=== PATIENT | male | born 1990 | race Caucasian/White ===

== ENCOUNTER 2021-08-11 16:27 | Emergency (ER) | payer SELFPAY ==
[~2021-08-11] VITALS: Ht 175.2 cm; Wt 95.2 kg
[~2021-08-11 16:27] MED LIST: ACHD5005 PO
[2021-08-11] MEDS ORDERED: HYDROcodone/APAP 7.5 MG/325 MG (LORTAB, LORCET PLUS) TABLET PO STA (16:41)
--- NOTE | 2021-08-11 16:44 | ED Lower Extremity ---
General Chief Complaint: Lower Extremity Stated Complaint: HURT RIGHT FOOT Source: patient Exam Limitations: no limitations History of Present Illness Date Seen by Provider: Aug 11, 2021 Time Seen by Provider: 16:42 Initial Comments Patient is a 30-year-old male who presents ED with right foot pain. Around 3:00 today a 200 pound fork of a dana lift fell on his right foot. Patient was wearing tennis shoes. Pain to the dorsum side of the foot. Pain with walking. No obvious bone deformity. Swelling and bruising. Denies anything for pain. No history of previous fracture. Denies ankle pain, nausea, vomiting, fever, chills Allergies and Home Medications Allergies Coded Allergies: No Known Drug Allergies (Unverified , 04/16/12) Patient Home Medication List Home Medication List Reviewed: Yes Naproxen (Naproxen) 500 Mg Tablet.dr, 500 MG PO BID Prescribed by: SALLY SANCHEZ on 08/11/21 1590 Review of Systems Constitutional: No chills, No fever, No malaise, No weakness EENTM: No blurred vision, No mouth pain, No mouth swelling, No throat pain, No throat swelling Respiratory: No cough, No dyspnea on exertion, No short of breath Cardiovascular: No chest pain Gastrointestinal: No abdominal pain, No diarrhea, No nausea, No vomiting Genitourinary: No decreased output, No discharge Musculoskeletal: No back pain; joint pain, joint swelling, muscle pain Skin: other (Bruising and swelling) All Other Systems Reviewed Negative Unless Noted: Yes Physical Exam Vital Signs Vital Signs - First Documented 08/11/21 16:42 Temp 36.0 Pulse 77 Resp 18 B/P (MAP) 148/96 (113) Pulse Ox 98 Capillary Refill : Height, Weight, BMI Height: '" Weight: lbs. oz. kg; BMI Method:Stated General Appearance: WD/WN, no apparent distress HEENT: PERRL/EOMI, normal ENT inspection, TMs normal, pharynx normal Neck: non-tender, full range of motion, supple Cardiovascular: regular rate, rhythm, no edema, no gallop, no JVD Respiratory: chest non-tender, lungs clear, normal breath sounds, no respiratory distress, no accessory muscle use Gastrointestinal: normal bowel sounds, non tender, soft Back: normal inspection, no CVA tenderness Feet: right foot limited range of motion, right foot pain, right foot soft tissue tenderness Neurologic/Tendon: normal sensation Skin: other (Contusion and swelling to right dorsal foot) Progress/Results/Core Measures Results/Orders My Orders Orders - DENISE CLIFTON Foot, Right, 3 View (08/11/21 16:41) Hydrocodone/Apap 7.5/325 Tab (Lortab 7. (08/11/21 16:41) Vital Signs/I&O 08/11/21 16:42 Temp 36.0 Pulse 77 Resp 18 B/P (MAP) 148/96 (113) Pulse Ox 98 Departure Communication (Admissions) X-ray of the right foot negative for fracture. He is able to bear weight. Was given a dose of pain medication. Will discharge with anti-inflammatories. Orthopedic follow-up in 7 to 10 days if pain progress. Ice and elevate. Rick wrap for support. Recommend proper footwear. Postop shoe ir Rick wrap for comfort. Crutches as needed. Outpatient follow-up. Return precaution were discussed Impression Primary Impression: Foot sprain Disposition: 01 HOME, SELF-CARE Condition: Stable Departure-Patient Inst. Decision time for Depature: 17:54 Referrals: NO,LOCAL PHYSICIAN (PCP) Primary Care Physician LEV BELTRAN MD Patient Instructions: Foot Sprain (DC) Scripts Naproxen (Naproxen) 500 Mg Tablet. 500 MG PO BID for 10 Days, #20 TAB Prov: DENISE CLIFTON 08/11/21 Work/School Note: Work Release Form Date Seen in the Emergency Department: Aug 11, 2021 Return to Work: Aug 14, 2021 DENISE CLIFTON Aug 11, 2021 16:44
--- NOTE | 2021-08-11 17:40 | Diagnostic Imaging Report ---
INDICATION: Pain along the dorsum of the foot and first and second digits. EXAMINATION: Right foot from 08/11/2021. FINDINGS: Three views of the foot. Small osseous fragments at the interphalangeal joint of the great toe appear well corticated and chronic in nature. No acute fractures or dislocations appreciated. Soft tissues are unremarkable. IMPRESSION: 1. Chronic findings with no acute osseous abnormality. Dictated by: Dictated on workstation # [id number]
[2021-08-11] MEDS ORDERED: NAPR500T8 PO (17:55)
[2021-08-11 18:01] VITALS: BP 131/77
== END 2021-08-11 18:01 | disposition home or self-care (01) ==
LOC: EDUNIT# 16:27 → ER 16:32
DX: S93.601A Unspecified sprain of right foot, initial encounter (principal); X50.1XXA Overexertion from prolonged static or awkward postures, initial encounter
CPT/HCPCS: 73630

== ENCOUNTER 2022-01-05 12:19 | Emergency (ER) | payer SELFPAY ==
[~2022-01-05] VITALS: Ht 177 cm; Wt 99.7 kg
[~2022-01-05 12:19] MED LIST changes: +NAPR500T8 PO
--- NOTE | 2022-01-05 12:46 | ED General ---
General Chief Complaint: Upper Extremity Stated Complaint: L SHOULDER PAIN Source of Information: Patient Exam Limitations: No Limitations History of Present Illness Date Seen by Provider: Jan 05, 2022 Time Seen by Provider: 12:45 Initial Comments To ER with reports that he awakened with left shoulder pain about 2 weeks ago. Persistent pain since. Unable to fully abduct the arm at the shoulder since. Allergies and Home Medications Allergies Coded Allergies: No Known Drug Allergies (Unverified , 04/16/12) Patient Home Medication List Home Medication List Reviewed: Yes Naproxen (Naproxen) 500 Mg Tablet.dr, 500 MG PO BID Prescribed by: SALLY SANCHEZ on 08/11/21 6581 Review of Systems Review of Systems Constitutional: see HPI EENTM: see HPI Respiratory: no symptoms reported Cardiovascular: no symptoms reported Genitourinary: no symptoms reported Musculoskeletal: see HPI Skin: no symptoms reported Psychiatric/Neurological: No Symptoms Reported Hematologic/Lymphatic: No Symptoms Reported Immunological/Allergic: no symptoms reported Past Afaiqhy-Gkdyce-Gvybta Hx Patient Social History Tobacco Use?: No Use of E-Cig and/or Vaping dev: No Substance use?: No Alcohol Use?: No Pt feels they are or have been: No Physical Exam Vital Signs Vital Signs - First Documented 01/05/22 12:44 Temp 37.0 Pulse 76 Resp 18 B/P (MAP) 133/88 (103) Pulse Ox 98 O2 Delivery Room Air Capillary Refill : Height, Weight, BMI Height: '" Weight: lbs. oz. kg; 31.00 BMI Method:Stated General Appearance: No Apparent Distress, WD/WN Eyes: Bilateral Eye Normal Inspection, Bilateral Eye PERRL, Bilateral Eye EOMI Neck: Full Range of Motion, Normal Inspection Respiratory: No Accessory Muscle Use, No Respiratory Distress Cardiovascular: Regular Rate, Rhythm, Normal Peripheral Pulses Gastrointestinal: Normal Bowel Sounds, Non Tender, Soft Extremity: Normal Capillary Refill, Normal Inspection, Other (Limited range of motion left shoulder secondary to pain. He reports a catching sensation when he abducts the arm) Neurologic/Psychiatric: Alert, Oriented x3 Skin: Normal Color, Warm/Dry Progress/Results/Core Measures Suspected Sepsis SIRS Temperature: Pulse: Respiratory Rate: Blood Pressure / Mean: Results/Orders My Orders Orders - ERNESTO CHONG APRN Shoulder, Left, 3 Views (01/05/22 12:43) Vital Signs/I&O 01/05/22 12:44 Temp 37.0 Pulse 76 Resp 18 B/P (MAP) 133/88 (103) Pulse Ox 98 O2 Delivery Room Air Capillary Refill : Departure Impression Primary Impression: Internal derangement of left shoulder Disposition: HOME, SELF-CARE Condition: Stable Departure-Patient Inst. Decision time for Depature: 12:45 Referrals: NO,LOCAL PHYSICIAN (PCP) Primary Care Physician JEFRY BRAUN MD, ROBERT F DO ZAFUTA, MICHAEL P MD Patient Instructions: Shoulder Pain ED Add. Discharge Instructions: 1. Follow-up with primary care or one of the orthopedist listed to discuss further evaluation of your shoulder pain. Tylenol and ibuprofen for pain control the meantime. All discharge instructions reviewed with patient and/or family. Voiced understanding. Work/School Note: Work Release Form Date Seen in the Emergency Department: Jan 05, 2022 Return to Work: Jan 06, 2022 Other Restrictions Listed Below: No use of left arm until released ERNESTO CHONG APRN Jan 05, 2022 12:46
--- NOTE | 2022-01-05 13:12 | Diagnostic Imaging Report ---
Indication: Left shoulder pain for 2 weeks. Time of Exam: 12:58 PM 3 views of the left shoulder were obtained. Glenohumeral and acromioclavicular alignment are normal. Acromiohumeral space is normal. No fracture or dislocation is identified. Impression: No acute abnormality is detected. Dictated by: Dictated on workstation # [id number]
[2022-01-05 13:22] VITALS: BP 133/88
== END 2022-01-05 13:23 | disposition home or self-care (01) ==
LOC: EDUNIT# 12:19 → ER 12:20
DX: M24.812 Other specific joint derangements of left shoulder, not elsewhere classified (principal)
CPT/HCPCS: 73030

== ENCOUNTER → 2022-01-12 | Outpatient (CLI) | payer SELFPAY | LOC: ORTHO 09:04 | PROVIDERS: ATTEND Orthopaedic Surgery | DX: M75.22 Bicipital tendinitis, left shoulder (principal); M75.32 Calcific tendinitis of left shoulder | CPT/HCPCS: 20610; G0463 ==